=== PATIENT | male | born 1985 | race Caucasian/White ===

== ENCOUNTER 2018-08-28 09:42 | Emergency (ER) | payer OTHER, SELFPAY ==
[2018-08-28 09:50] VITALS: BP 131/77; PULSE 79; RESP 12; TEMP 36.7; O2SAT 100; BMI 29.8
--- NOTE | 2018-08-28 10:21 | ED_ITS ---
HPI - URI/Sore Throat General Chief Complaint: Upper Respiratory Symptoms Stated Complaint: States Strep throat Time Seen by Provider: 08/28/18 10:21 Source: patient Mode of arrival: ambulatory Limitations: no limitations History of Present Illness HPI Narrative: Patient is an otherwise healthy 32-year-old male here for evaluation of a sore throat and neck pain radiating up into his ears. He states that his was recently diagnosed with strep throat. He is active duty . Could not contact his primary doctor this morning. No rashes. Has not tried anything for symptoms. Related Data Home Medications Medication Instructions Recorded Confirmed No Known Home Medications 08/28/18 08/28/18 Allergies Allergy/AdvReac Type Severity Reaction Status Date / Time No Known Drug Allergies Allergy Verified 08/28/18 10:04 Review of Systems Constitutional Reports headache(s) ENT Ears, Nose, Mouth, and Throat: Reports headache(s), Reports neck pain, Reports sinus pressure and Reports sore throat Cardiovascular Denies dyspnea Respiratory Denies cough and Denies dyspnea Musculoskeletal Denies myalgias, Denies arthralgias and Reports neck pain Integumentary/Breasts Denies rash Neurologic Reports headache(s) Allergic/Immunologic Denies urticaria [facility]LY [facility] Medical History Healthy adult (Acute) Social History Smoking Status: Never smoker Social History Smoking Status: Never smoker Exam Initial Vital Signs Initial Vital Signs: Vital Signs Temperature 98.0 F 08/28/18 09:50 Pulse Rate 79 08/28/18 09:50 Respiratory Rate 12 08/28/18 09:50 Blood Pressure 131/77 08/28/18 09:50 Pulse Oximetry 100 08/28/18 09:50 Const General: cooperative, healthy appearing, comfortable, well developed, well groomed and No acute distress Orientation: alert, awake and oriented x3 HENMT Head: normal to inspection Ears: TM's normal bilaterally Nose: external nose normal Face and sinus: normal facial exam Mouth: oral mucosae normal Throat: uvula midline and no postnasal drainage Neck Lymphatic: lymphadenopathy Resp Effort & Inspection: normal respiratory effort Auscultation: clear to auscultation bilaterally Cardio Rate: regular rate Rhythm: regular rhythm Skin Lesions: no lesions Rashes: no rashes Neuro General: alert, awake and oriented x3 Extrem General: normal to inspection and capillary refill normal Psych Appearance: grossly normal and well kempt Course Orders Ordered: Discontinued Medications Penicillin G Benzathine (Bicillin L-A) 1,200,000 unit IM NOW ONE Stop: 08/28/18 10:22 Vital Signs - 8 hr 08/28/18 09:50 Temperature 98.0 F Pulse Rate 79 Respiratory Rate 12 Blood Pressure 131/77 Pulse Oximetry 100 MDM - URI/Sore Throat Lab Data Attestation: I reviewed the patient's lab results. Point of Care Testing Rapid Strep A Positive MDM Narrative Medical decision making narrative: Patient not in any respiratory distress. Is strep positive. We discussed treatments to include intramuscular injection versus oral antibiotics. Patient opted for the intramuscular injection. He has had penicillin in the past. 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 He was given return precautions. He expressed understanding and agreement plan. Discharge Plan Departure Patient Disposition: Home Clinical Impression: Acute streptococcal pharyngitis Instructions: DI for Strep Throat Activity Restrictions/Additional Instructions: You are down from flying until your cleared by your flight surgeon. You were given a shot of penicillin here in the emergency department for treatment of the strep throat. Return to the emergency department for any new or worsening symptoms Prescriptions: No Action No Known Home Medications RF: 0
[2018-08-28] MEDS: PENICILLIN G BENZATHINE 1,200,000 UNIT/2 ML SYRINGE 1200000 UNIT IM (10:30)
[2018-08-28 10:54] VITALS: BP 132/81; PULSE 88; RESP 14; O2SAT 97
== END 2018-08-28 10:55 | disposition home or self-care (01) ==
PROVIDERS: Emergency Provider Emergency Medicine
DX: J02.0 Streptococcal pharyngitis (principal)
CPT/HCPCS: 87880; 96372; 99282; 99283; J0561